=== PATIENT | male | born 2000 | race Caucasian/White ===

== ENCOUNTER 2024-07-22 15:11 | Emergency (ER) | payer OTHER, SELFPAY ==
[2024-07-22 15:17] VITALS: BP 137/89; PULSE 74; RESP 16; TEMP 36.7; O2SAT 99; BMI 27.3
--- NOTE | 2024-07-22 15:44 | DI.US.S_ITS ---
PROCEDURE: US SCROTUM INDICATIONS: R testicular exam TECHNIQUE: Real-time scanning was performed of the scrotum and testicles, with image documentation. Color and pulse Doppler interrogation was performed of both testicles. COMPARISON: None. FINDINGS: Right: Testicle is normal in size at 4.7 x 3.5 x 2.1 cm, and homogenous in echotexture. Epididymis is normal in overall size and morphology. Simple appearing right epididymal head cyst is seen measures 1 x 1 x 0.7 cm in size. Trace amount of right hydrocele. No varicoceles. Overlying scrotal skin is normal in thickness. Left: Testicle is normal in size at 4.8 x 3.4 x 2.2 cm, and homogeneous in echotexture. Epididymis is normal in overall size and morphology. Tiny cyst is seen in left epididymis measures 0.4 x 0.4 x 0.3 cm in size. No hydrocele or varicoceles. Overlying scrotal skin is normal in thickness. Doppler: Color and pulse Doppler demonstrate normal and symmetric arterial flow in both testicles. Mildly increased vascularity within right epididymis is seen. IMPRESSION: 1. Normal appearing bilateral testes. No testicular mass. No testicular torsion. 2. Mild right epididymitis. Bilateral epididymal cysts as above. Trace right hydrocele. Dictated by: Renard Bhandari M.D. on 07/22/2024 at 17:01 Approved by: Renard Bhandari M.D. on 07/22/2024 at 17:03
--- NOTE | 2024-07-22 16:51 | ED.ABDPAIN ---
HPI - Abdominal Pain <Mahnaz Moody PA-C - Last Filed: 08/04/24 16:13> General Chief Complaint: Abdominal Pain Stated Complaint: Rt testicle pain; lower right abdominal pain Time Seen by Provider: 07/22/24 15:44 Source: patient Mode of arrival: Family Vehicle History of Present Illness HPI narrative: 23-year-old male presents to the ED for 3 days of right testicular and right lower quadrant pain. No fever, chills. No dysuria. No nausea, vomiting, diarrhea. Related Data Allergies Allergy/AdvReac Type Severity Reaction Status Date / Time No Known Drug Allergies Allergy Verified 07/22/24 15:21 Review of Systems <Mahnaz Moody PA-C - Last Filed: 08/04/24 16:13> Constitutional Constitutional: Denies chills, Denies fatigue, Denies fever(s), Denies frequent falls, Denies lethargy and Denies weakness Eyes Eyes: Denies change in vision, Denies eye discharge, Denies irritation and Denies loss of vision ENT Ears, Nose, Mouth, and Throat: Denies change in voice, Denies dizziness, Denies neck pain, Denies sore throat and Denies throat swelling Cardiovascular Cardiovascular: Denies chest pain, Denies irregular heart rhythm, Denies lightheadedness, Denies palpitations, Denies dyspnea, Denies dyspnea on exertion and Denies orthopnea Respiratory Respiratory: Denies cough, Denies dyspnea, Denies dyspnea on exertion and Denies wheezing Gastrointestinal Gastrointestinal: Reports abdominal pain, Denies change in bowel habits, Denies diarrhea, Denies nausea and Denies vomiting Genitourinary Genitourinary: Reports testicular pain (Right) Musculoskeletal Musculoskeletal: Denies neck pain and Denies numbness Integumentary/Breasts Skin/Breast: Denies pruritus, Denies erythema, Denies rash and Denies wounds Neurologic Neurologic: Denies behavioral changes, Denies confusion, Denies dizziness, Denies frequent falls, Denies loss of vision, Denies numbness and Denies weakness Psychiatric Psychiatric: Denies anxiety, Denies behavioral changes, Denies confusion, Denies depression, Denies homicidal ideation and Denies suicidal ideation Endocrine Endocrine: Denies fatigue, Denies flushing and Denies palpitations Hematologic/Lymphatic Hematologic/Lymphatic: Denies easy bruising Allergic/Immunologic Allergic/Immunologic: Denies urticaria, Denies throat swelling and Denies wheezing Exam <Mahnaz Moody PA-C - Last Filed: 08/04/24 16:13> Narrative Exam Narrative: Const General:?cooperative, healthy appearing and comfortable [facility] Head:?normal to inspection Ears:?hearing grossly normal bilaterally Nose:?external nose normal Face and sinus:?normal facial exam and sinuses nontender Mouth:?oral mucosae normal Throat:?posterior oropharynx normal Eyes General:?appearance normal, both eyes and all related structures Neck Neck:?normal visual inspection and no lymphadenopathy noted Resp Effort & Inspection:?normal respiratory effort Auscultation:?clear to auscultation bilaterally Cardio Rate:?regular rate Rhythm:?regular rhythm GI/ Abdomen is soft, nondistended. There is tenderness to palpation of the right lower quadrant. Normal exam. Neuro General:?patient alert, patient awake and patient oriented x3 Initial Vital Signs Initial Vital Signs: Vital Signs Temperature 98.0 F 07/22/24 15:17 Pulse Rate 74 07/22/24 15:17 Respiratory Rate 16 07/22/24 15:17 Blood Pressure 137/89 07/22/24 15:17 Pulse Oximetry 99 07/22/24 15:17 Oxygen Delivery Method Room Air 07/22/24 15:17 <So Harrison DO - Last Filed: 08/06/24 07:16> Initial Vital Signs Initial Vital Signs: Vital Signs Temperature 98.0 F 07/22/24 15:17 Pulse Rate 74 07/22/24 15:17 Respiratory Rate 16 07/22/24 15:17 Blood Pressure 137/89 07/22/24 15:17 Pulse Oximetry 99 07/22/24 15:17 Oxygen Delivery Method Room Air 07/22/24 15:17 Course <Mahnaz Moody PA-C - Last Filed: 08/04/24 16:13> Orders Ordered: Discontinued Medications Ceftriaxone Sodium (Ceftriaxone 1,000 Mg Vial) 500 mg IM NOW ONE Stop: 07/22/24 18:40 Last Admin: 07/22/24 18:56 Dose: 500 mg Documented By: MYRON Lidocaine HCl (Lidocaine 1% (Pf) 5 Ml) 2.1 ml INJ NOW ONE Stop: 07/22/24 18:40 Last Admin: 07/22/24 18:56 Dose: 2.1 ml Documented By: MYRON Vital Signs Vital signs: Vital Signs - 8 hr 07/22/24 15:17 Temperature 98.0 F Pulse Rate 74 Respiratory Rate 16 Blood Pressure 137/89 Pulse Oximetry 99 Oxygen Delivery Method Room Air <So Harrison DO - Last Filed: 08/06/24 07:16> Orders Ordered: Discontinued Medications Ceftriaxone Sodium (Ceftriaxone 1,000 Mg Vial) 500 mg IM NOW ONE Stop: 07/22/24 18:40 Last Admin: 07/22/24 18:56 Dose: 500 mg Documented By: MYRON Lidocaine HCl (Lidocaine 1% (Pf) 5 Ml) 2.1 ml INJ NOW ONE Stop: 07/22/24 18:40 Last Admin: 07/22/24 18:56 Dose: 2.1 ml Documented By: MYRON Vital Signs Vital signs: Vital Signs - 8 hr 07/22/24 15:17 Temperature 98.0 F Pulse Rate 74 Respiratory Rate 16 Blood Pressure 137/89 Pulse Oximetry 99 Oxygen Delivery Method Room Air MDM - Abdominal Pain <Mahnaz Moody PA-C - Last Filed: 08/04/24 16:13> Lab Data 07/22/24 17:45 07/22/24 17:45 Labs: Lab Results 07/22/24 Range/Units 17:45 WBC 7.5 (4.5-11.0) X10^3/uL RBC 5.45 (4.5-5.9) X10^6/uL Hgb 16.1 (13.5-17.5) g/dL Hct 47.1 (41-53) % MCV 86.4 (80-100) fL MCH 29.6 (26-34) PG MCHC 34.3 (30-36) % RDW 13.3 (11.6-14.8) % Plt Count 213 (150-400) X10^3/uL Neut % (Auto) 62.1 (50-75) % Lymph % (Auto) 30.8 (25-40) % [place] % (Auto) 5.0 (3-14) % Eos % (Auto) 1.5 L (2-4) % Baso % (Auto) 0.6 (0-2) % Neut # (Auto) 4700 (5903-8494) /uL Lymph # (Auto) 2300 (9890-3925) /uL [place] # (Auto) 400 (0-900) /uL Eos # (Auto) 100 (0-450) /uL Baso # (Auto) 0 (0-100) /uL PT 13.8 H (9.4-12.5) SECONDS INR 1.2 (0.9-1.3) APTT 34 (25.1-36.5) SECONDS Sodium 138 (137-145) mmol/L Potassium 4.0 (3.4-5.1) mmol/L Chloride 103 (98-107) mmol/L Carbon Dioxide 26 (22-32) mmol/L BUN 8 L (9-20) mg/dL Creatinine 0.86 (0.66-1.25) mg/dL Estimated GFR > 60 (>60) mL/min BUN/Creatinine Ratio 9.3 (6-22) Glucose 97 (70-100) mg/dL Calcium 9.7 (8.4-10.2) mg/dL Total Bilirubin 1.0 (0.2-1.3) mg/dL AST 39 (17-59) IU/L ALT 30 (<50) IU/L Alkaline Phosphatase 48 (38-126) U/L Total Protein 8.2 (6.3-8.2) g/dL Albumin 5.1 H (3.5-5.0) g/dL Globulin 3.1 (1.7-4.1) g/dL Albumin/Globulin Ratio 1.6 (1.0-2.8) Lipase 41 (23-300) U/L Point of care testing: Urine Dip Bedside Urine Glucose Negative Bedside Urine Bilirubin - Negative Bedside Urine Ketone - Negative Urine Specific [place] 1.010 Bedside Urine Occult Blood - Negative Bedside Urine pH 8.0 Bedside Urine Protein - Negative Bedside Urine Urobilinogen - Negative Bedside Urine Nitrite - Negative Bedside Urine Leukocytes - Negative Esterase MDM Narrative Medical decision making narrative: 23-year-old male presents to the ED for 3 days of right testicular and right lower quadrant pain. Concern for testicular torsion versus epididymitis versus orchitis versus appendicitis versus hernia versus other. Labs were obtained which were within normal limits. UA without UTI. Ultrasound scrotum shows normal-appearing bilateral testes. No testicular mass. No testicular torsion. Mild right epididymitis. Bilateral epididymal cysts. Trace right hydrocele. CT abdomen pelvis shows no acute process. No free fluid. 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 Discussed findings with patient. Prescribed antibiotics. Recommend follow-up with PCP. ED return precautions discussed with patient. Patient verbalized understanding. Medical records reviewed: Yes <So Harrison DO - Last Filed: 08/06/24 07:16> Lab Data Labs: Lab Results 07/22/24 Range/Units 17:45 WBC 7.5 (4.5-11.0) X10^3/uL RBC 5.45 (4.5-5.9) X10^6/uL Hgb 16.1 (13.5-17.5) g/dL Hct 47.1 (41-53) % MCV 86.4 (80-100) fL MCH 29.6 (26-34) PG MCHC 34.3 (30-36) % RDW 13.3 (11.6-14.8) % Plt Count 213 (150-400) X10^3/uL Neut % (Auto) 62.1 (50-75) % Lymph % (Auto) 30.8 (25-40) % [place] % (Auto) 5.0 (3-14) % Eos % (Auto) 1.5 L (2-4) % Baso % (Auto) 0.6 (0-2) % Neut # (Auto) 4700 (6505-6438) /uL Lymph # (Auto) 2300 (7292-4373) /uL [place] # (Auto) 400 (0-900) /uL Eos # (Auto) 100 (0-450) /uL Baso # (Auto) 0 (0-100) /uL PT 13.8 H (9.4-12.5) SECONDS INR 1.2 (0.9-1.3) APTT 34 (25.1-36.5) SECONDS Sodium 138 (137-145) mmol/L Potassium 4.0 (3.4-5.1) mmol/L Chloride 103 (98-107) mmol/L Carbon Dioxide 26 (22-32) mmol/L BUN 8 L (9-20) mg/dL Creatinine 0.86 (0.66-1.25) mg/dL Estimated GFR > 60 (>60) mL/min BUN/Creatinine Ratio 9.3 (6-22) Glucose 97 (70-100) mg/dL Calcium 9.7 (8.4-10.2) mg/dL Total Bilirubin 1.0 (0.2-1.3) mg/dL AST 39 (17-59) IU/L ALT 30 (<50) IU/L Alkaline Phosphatase 48 (38-126) U/L Total Protein 8.2 (6.3-8.2) g/dL Albumin 5.1 H (3.5-5.0) g/dL Globulin 3.1 (1.7-4.1) g/dL Albumin/Globulin Ratio 1.6 (1.0-2.8) Lipase 41 (23-300) U/L Point of care testing: Urine Dip Bedside Urine Glucose Negative Bedside Urine Bilirubin - Negative Bedside Urine Ketone - Negative Urine Specific [place] 1.010 Bedside Urine Occult Blood - Negative Bedside Urine pH 8.0 Bedside Urine Protein - Negative Bedside Urine Urobilinogen - Negative Bedside Urine Nitrite - Negative Bedside Urine Leukocytes - Negative Esterase Discharge Plan Departure Patient Disposition: Home Clinical Impression: Epididymitis Instructions: DI for Epididymitis Activity Restrictions/Additional Instructions: You were evaluated in the ED today for testicular and abdominal pain. The ultrasound showed right-sided epididymitis. You are being prescribed antibiotics. The CT scan did not show any emergent findings, did show some liver hamartomas, that are likely benign. Please follow-up with your PCP for further evaluation. Return to the ED if you experience worsening symptoms. Referrals: Miscellaneous,Doctor, [Primary Care Provider] - Stand Alone Forms: Patient Portal/API/Survey ED Sign-out <So Harrison DO - Last Filed: 08/06/24 07:16> Cosign ED Attending Yanniature Attestation: I was immediately available in the department for consultation.
--- NOTE | 2024-07-22 17:40 | DI.CT.S_ITS ---
PROCEDURE: CT ABDOMEN PELVIS W CON INDICATIONS: RLQ pain, epididymitis TECHNIQUE: After the administration of intravenous contrast, axial sections acquired from the lung bases to the pubic symphysis. Coronal and sagittal reformats were performed. For radiation dose reduction, the following was used: automated exposure control, adjustment of mA and/or kV according to patient size. COMPARISON: None. FINDINGS: Image quality: Diagnostic. Lower Chest: No significant findings. ABDOMEN: Liver: Numerous punctate hypodensities. These could represent biliary hamartomas or cysts. Gallbladder: No radiopaque gallstones or wall thickening. Biliary ducts: No biliary dilation. Pancreas: No ductal dilation. Spleen: Size is within normal limits. Adrenal Glands: No adrenal nodules. Kidneys and Ureters: No hydronephrosis. No solid mass. No complex renal cystic lesion which requires follow up. Stomach and Bowel: Normal colonic caliber, without significant wall thickening. Normal appendix. No small bowel obstruction. Peritoneum: No abnormal intraperitoneal fluid. No free air. Ventral Wall: No significant ventral hernia. Abdominal Nodes: No retroperitoneal or mesenteric adenopathy by size criteria. Vessels: Aorta and inferior vena cava are normal in size. PELVIS: Pelvic Organs: No free fluid. Subtle heterogeneity in the region of the left seminal vesicle base. No adjacent fat stranding. Bladder: No bladder wall thickening. Pelvic Nodes: No enlarged lymph nodes. Miscellaneous: No inguinal hernias are seen. Bones: No aggressive osseous abnormality. Bilateral L5 pars defect. Anterolisthesis of L5 on S1 measuring 0.5 cm. IMPRESSION: No acute process is identified. No free fluid. Bilateral L5 pars defect. Grade 1 anterolisthesis of L5 on S1. 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 Dictated by: Gurvinder Peter M.D. on 07/22/2024 at 18:24 Approved by: Gurvinder Peter M.D. on 07/22/2024 at 18:31
[2024-07-22 17:54] LABS: Add Manual Diff / Slide Review NO; Basophils Absolute Auto 0 /uL (0-100); Basophils Percent Auto 0.6 % (0-2); Eosinophils Absolute Auto 100 /uL (0-450); Eosinophils Percent Auto 1.5 % (2-4); Hematocrit 47.1 % (41-53); Hemoglobin 16.1 g/dL (13.5-17.5); Lymphocytes Absolute Auto 2300 /uL (1100-4500); Lymphocytes Percent Auto 30.8 % (25-40); Mean Corpuscular HGB Conc 34.3 % (30-36); Mean Corpuscular Hemoglobin 29.6 PG (26-34); Mean Corpuscular Volume 86.4 fL (80-100); Monocytes Absolute Auto 400 /uL (0-900); Neutrophils Absolute Auto 4700 /uL (1500-7000); Neutrophils Percent Auto 62.1 % (50-75); Platelet Count 213 X10^3/uL (150-400); Red Blood Cell Count 5.45 X10^6/uL (4.5-5.9); Red Cell Distribution Width 13.3 % (11.6-14.8); White Blood Cell Count 7.5 X10^3/uL (4.5-11.0)
[2024-07-22 18:02] LABS: INR 1.2 (0.9-1.3); Prothrombin Time 13.8 SECONDS (9.4-12.5)
[2024-07-22 18:05] LABS: PTT Partial Thromboplastin Tim 34 SECONDS (25.1-36.5)
[2024-07-22 18:06] LABS: Alanine Aminotransferase 30 IU/L (<50); Albumin 5.1 g/dL (3.5-5.0); Albumin Globulin Ratio 1.6 (1.0-2.8); Alkaline Phosphatase 48 U/L (38-126); Aspartate Aminotransferase 39 IU/L (17-59); BUN Creatinine Ratio 9.3 (6-22); Blood Urea Nitrogen 8 mg/dL (9-20); Calcium 9.7 mg/dL (8.4-10.2); Carbon Dioxide 26 mmol/L (22-32); Chloride 103 mmol/L (98-107); Estimated Glomerular Filt Rate > 60 mL/min (>60); Globulin 3.1 g/dL (1.7-4.1); Glucose 97 mg/dL (70-100); HEMOLYSIS < 15 (0-50); Lipase 41 U/L (23-300); Sodium 138 mmol/L (137-145); Total Protein 8.2 g/dL (6.3-8.2)
[2024-07-22 18:18] VITALS: BP 132/90; PULSE 77; RESP 16; O2SAT 100
[2024-07-22] MEDS: LIDOCAINE 1% (PF) 5 ML 2.1 ML INJ (18:56)
[2024-07-22] MEDS: cefTRIAXone 1,000 MG VIAL 500 MG IM (18:56)
== END 2024-07-22 19:09 | disposition home or self-care (01) ==
PROVIDERS: Emergency Provider Student in an Organized Health Care Education/Training Program
DX: N45.1 Epididymitis (principal); R10.31 Right lower quadrant pain
CPT/HCPCS: 74177; 76870; 80053; 81003; 83690; 85025; 85610; 85730; 93975; 96372; 99283; 99284; J0696; Q9967